=== PATIENT | female | born 1965 | race Caucasian/White ===

== ENCOUNTER 2016-11-29 14:10 | Emergency (ER) | payer BC ==
[~2016-11-29] VITALS: Ht 170.2 cm; Wt 70.3 kg
[2016-11-29 14:10] VITALS: BP 126/93
[2016-11-29] MEDS ORDERED: IBUP200C5 PO (14:35)
[2016-11-29] MEDS ORDERED: CHLO25CA22 PO (14:35)
== END 2016-11-29 15:12 | disposition home or self-care (01) ==
LOC: ER 14:12
DX: F10.129 Alcohol abuse with intoxication, unspecified (principal); F32.9 Major depressive disorder, single episode, unspecified
CPT/HCPCS: A4606; Z7610

== ENCOUNTER 2020-07-01 15:15 | Emergency (ER) | payer BC ==
[~2020-07-01] VITALS: Ht 170.2 cm; Wt 59.0 kg
[~2020-07-01 15:15] MED LIST: CHLO25CA22 PO; IBUP200C5 PO
--- NOTE | 2020-07-01 15:45 | NUR ---
PT FELL OF THE GURNEY WHILE BEING TRANSFERED BY PARAMEDICS. HEAD TRAUMA W/ NOTED HEAD LACERATION APPROX 2CM W/ ACTIVE BLEEDING. MADE AWARE.
--- NOTE | 2020-07-01 16:00 | NUR ---
TASHA [employer] CY[employer] SPECIALIST AT BEDSIDE FOR EVAL.
--- NOTE | 2020-07-01 16:07 | NUR ---
PT TO RADIOLOGY FOR HEAD AND C SPINE CT SCAN VIA [facility].
[2020-07-01] MEDS ORDERED: LIDOCAINE 1%-EPI 1:100,000 20 ML VIAL ONE (16:12)
[2020-07-01] MEDS ORDERED: LIDOCAINE 1%-EPI 1:100,000 50 ML VIAL IJ ONE (16:30)
--- NOTE | 2020-07-01 16:36 | NUR ---
TRACK OILER DEGRASSE AT BEDSIDE FOR SUTURING OF LAC AT R FOREHEAD
--- NOTE | 2020-07-01 17:49 | NUR ---
Patient discharged to home in stable condition. Written and verbal after care instructions given. Patient verbalizes understanding of instruction.
[2020-07-01 17:50] VITALS: BP 134/82
== END 2020-07-01 17:51 | disposition home or self-care (01) ==
LOC: ER 15:22
DX: S01.81XA Laceration without foreign body of other part of head, initial encounter (principal); S19.80XA Other specified injuries of unspecified part of neck, initial encounter; F10.129 Alcohol abuse with intoxication, unspecified; F41.9 Anxiety disorder, unspecified; Z88.5 Allergy status to narcotic agent; Z79.899 Other long term (current) drug therapy; V49.49XA Driver injured in collision with other motor vehicles in traffic accident, initial encounter; Y93.89 Activity, other specified; Y92.413 State road as the place of occurrence of the external cause; Y99.8 Other external cause status; Y90.9 Presence of alcohol in blood, level not specified
CPT/HCPCS: 12013; 70450; 72125; 99285; A6403; J3490 ×2

== ENCOUNTER → 2022-01-20 | Emergency (ER) | payer BC | END | disposition home or self-care (01) | LOC: ER 13:43 | DX: F10.229 Alcohol dependence with intoxication, unspecified (principal); F41.9 Anxiety disorder, unspecified; Z88.5 Allergy status to narcotic agent; Z79.1 Long term (current) use of non-steroidal anti-inflammatories (NSAID); Z79.899 Other long term (current) drug therapy; Y90.9 Presence of alcohol in blood, level not specified ==